=== PATIENT | male | born 1985 | race Caucasian/White ===

== ENCOUNTER 2022-10-30 14:30 | Outpatient (CLI) | payer BC, SELFPAY ==
[2022-10-30 16:50] LABS: Basophils Percent Auto 0.6 % (0.2-1.2); Eosinophils Absolute Auto 0.1 K/mm3 (0-0.3); Eosinophils Percent Auto 2.4 % (0-4.4); Hematocrit 43.2 % (42.0-52.0); Immature Granulocyte Absolute 0.02 K/mm3 (0.00-0.031); Immature Granulocyte Percent A 0.4 % (0-0.5); Lymphocytes Absolute Auto 1.83 K/mm3 (0.9-3.2); Lymphocytes Percent Auto 34.1 % (18.3-44.2); Mean Corpuscular HGB Conc 34.7 g/dl (32-36); Mean Corpuscular Volume 89.3 fl (80-100); Mean Platelet Volume 11.5 fl (7.4-10.4); Monocytes Absolute Auto 0.4 K/mm3 (0.1-0.6); Monocytes Percent Auto 6.5 % (2.6-8.5); Platelet Count Result 190 k/mm3 (150-375); Red Blood Count 4.84 M/mm3 (4.6-6.20); Red Cell Distribution Width 12.3 % (11.5-14.5); White Blood Count 5.4 K/mm3 (4.5-10.0)
[2022-10-30 17:21] LABS: Alanine Aminotransferase 17 U/L (6-50); Albumin Level 4.4 g/dL (3.5-5.1); Alkaline Phosphatase 91 U/L (38-126); Anion Gap 8 mmol/L (8-16); Aspartate Amino Transferase 42 U/L (17-59); Bilirubin,Total 0.7 mg/dL (0.2-1.3); Blood Urea Nitrogen 8 mg/dL (9-20); Carbon Dioxide 30 mmol/L (22-30); Chloride 100 mmol/L (98-107); Cholesterol 207 mg/dL (0-200); Estimated Glomerular Filt Rate > 60; Glucose 81 mg/dL (65-110); HDL Direct 37 mg/dL; Potassium 3.3 mmol/L (3.4-5.0); Sodium 138 mmol/L (137-145); Triglycerides 248 mg/dL (<150)
[2022-10-30 17:31] LABS: LDL Cholesterol Direct 113 mg/dL
[2022-10-30 17:39] LABS: Creatinine Urine 108.4 mg/dL
[2022-10-30 17:52] LABS: Free T4 Free Thyroxine 1.22 ng/mL (0.78-2.19)
[2022-10-30 17:54] LABS: Prostate Specific Antigen 0.5 ng/mL (< OR = 4.0); Total Triiodothyronine (T3) 1.66 NG/ML (0.97-1.69)
[2022-10-30 18:48] LABS: MALB Creatinine Ratio < 5.5 mg/g (0-30); Microalbumin Urine Random < 6.0 mg/L (0-16.7)
[2022-11-04 13:01] LABS: Testosterone Free 81.1 pg/mL (35.0-155.0); Testosterone Total 507 ng/dL (250-1100)
[2022-11-05 13:26] LABS: FSH 2.4 mIU/mL (1.6-8.0); LH 3.1 mIU/mL (1.5-9.3)
== END 2022-10-30 14:31 | disposition home or self-care (01) ==
PROVIDERS: Visit Provider Nurse Practitioner Adult Health
DX: E03.9 Hypothyroidism, unspecified (principal); R53.83 Other fatigue; R53.1 Weakness; N52.9 Male erectile dysfunction, unspecified; F32.A Depression, unspecified; I10 Essential (primary) hypertension
CPT/HCPCS: 36415; 80053; 80061; 82043; 83001; 83002; 84153; 84402; 84403; 84439; 84443; 84480; 85025